=== PATIENT | male | born 1980 | race Hispanic/Latino ===

== ENCOUNTER 2022-07-04 15:21 | Outpatient (CLI) | payer BC | END 2022-07-04 15:22 | disposition home or self-care (01) | LOC: CSHRAD 15:21 | PROVIDERS: ATTEND Internal Medicine Rheumatology | DX: M05.771 Rheumatoid arthritis with rheumatoid factor of right ankle and foot without organ or systems involvement (principal); M25.771 Osteophyte, right ankle; M25.871 Other specified joint disorders, right ankle and foot ==